=== PATIENT | male | born 1960 | race Caucasian/White ===

== ENCOUNTER 2022-06-22 10:07 | Day surgery (SDC) | payer OTHER ==
[~2022-06-22] VITALS: Ht 180.3 cm; Wt 112.6 kg
[~2022-06-22 10:07] MED LIST: DAILY MULTIPLE1 EACH; ETAN50I; FISH1000; IBUP800; PRAV20; TOCO400; ZYRTEC10 M1
--- NOTE | 2022-06-22 10:55 | NUR ---
History, Chart, Medications and Allergies reviewed before start of procedure. Patient confirms NPO status and agrees with scheduled surgery. Patient States Post-Procedure ride home has been arranged.
--- NOTE | 2022-06-22 11:12 | NUR ---
06/22/22 1112 Erica Mo History, Chart, Medications and Allergies reviewed before start of procedure.DR MUSA PROVIDING ANESTHESIA. SEE RECORDS
== END 2022-06-22 23:14 | disposition home or self-care (01) ==
LOC: ORSCMMR 10:07 → ORD 11:45 → ORSCMMR 23:14
PROVIDERS: Surgery
PROC: 0DJD8ZZ Inspection of Lower Intestinal Tract, Via Natural or Artificial Opening Endoscopic (ICD-10-PCS; principal; 2022-06-22 11:45)
DX: Z12.11 Encounter for screening for malignant neoplasm of colon (principal); Z86.010 Personal history of colon polyps; K57.30 Diverticulosis of large intestine without perforation or abscess without bleeding; G47.33 Obstructive sleep apnea (adult) (pediatric); E66.9 Obesity, unspecified; Z68.34 Body mass index [BMI] 34.0-34.9, adult; E78.5 Hyperlipidemia, unspecified; G47.30 Sleep apnea, unspecified; Z68.35 Body mass index [BMI] 35.0-35.9, adult; Z79.899 Other long term (current) drug therapy
CPT/HCPCS: J7120